=== PATIENT | male | born 1955 | race Caucasian/White ===

== ENCOUNTER → 2024-03-27 | Outpatient (CLI) | payer MEDICARE, BC, SELFPAY ==
[2024-03-27 17:44] LABS: Basophils % (Auto) 1 % (0-2.5); Eosinophils # (Auto) 0.3 Thou/mm3 (0.0-0.5); Eosinophils % (Auto) 6 % (0-10); Hematocrit 38.9 % (41.0-53.0); Hemoglobin 13.7 g/dL (13.5-16.0); Immature Granulocytes % (Auto) 0 % (0-0); Immature Granulocytes Auto 0.01 Thou/mm3 (0.00-0.00); Lymphocytes # (Auto) 1.6 Thou/mm3 (1.0-4.8); Lymphocytes % (Auto) 32 % (10-50); Mean Corpuscular HGB Conc 35.2 g/dl (31.0-37.0); Mean Corpuscular Hemoglobin 31.4 pg (25.0-35.0); Mean Corpuscular Volume 89 fL (80-100); Monocytes # (Auto) 0.5 Thou/mm3 (0.0-0.8); Monocytes % (Auto) 10 % (0-12); Neutrophils # (Auto) 2.6 Thou/mm3 (1.8-7.7); Neutrophils % (Auto) 52 % (37-80); Nucleated Red Blood Cell % 0 /100 WBC (0); Platelet Count 172 Thou/mm3 (140-440); RDW Standard Deviation 39.4 fL (35.1-43.9); Red Blood Count 4.37 Miln/mm3 (4.50-5.90); White Blood Count 5.1 Thou/mm3 (3.8-10.6)
[2024-03-27 17:53] LABS: B-Type Natriuretic Peptide 134 pg/mL (0-100)
[2024-03-27 17:59] LABS: D-Dimer 275 ng/mL (<600)
[2024-03-27 18:12] LABS: Anion Gap 8 (7-16); BUN/Creatinine Ratio 22 Ratio (12-20); Blood Urea Nitrogen 22 mg/dL (9-23); Calcium 9.4 mg/dL (8.3-10.6); Calcium (Corrected) 9.4 mg/dL (8.5-10.1); Carbon Dioxide 28.3 mMol/L (20.0-31.0); Chloride 106 mMol/L (98-107); Glucose 80 mg/dL (74-106); Osmolality,Calculated 285 (275-295); Phosphorous 3.8 mg/dL (2.4-5.1); Potassium 4.2 mMol/L (3.4-5.1); Sodium 142 mMol/L (136-145); Thyroid Stimulating Hormone 1.76 uIU/mL (0.55-4.78); Troponin I < 0.020 ng/mL (0.0-0.045); eGFR > 60 See Note
== END | disposition home or self-care (01) ==
LOC: COPL 16:58
PROVIDERS: PCP Specialist; Referring Provider Specialist; Visit Provider Specialist
DX: I42.9 Cardiomyopathy, unspecified (principal)
CPT/HCPCS: 36415; 80069; 83880; 84443; 84484; 85025; 85379

== ENCOUNTER → 2024-07-04 | Outpatient (CLI) | payer MEDICARE, BC, SELFPAY ==
[2024-07-04 11:16] LABS: INR 2.5 (0.9-1.3); Prothrombin Time 25.8 Seconds (9.0-12.2)
== END | disposition home or self-care (01) ==
PROVIDERS: PCP Specialist; Referring Provider Specialist; Visit Provider Specialist
DX: I35.0 Nonrheumatic aortic (valve) stenosis (principal); Z79.01 Long term (current) use of anticoagulants
CPT/HCPCS: 36415; 85610

== ENCOUNTER → 2024-07-11 | Outpatient (CLI) | payer MEDICARE, BC, SELFPAY ==
[2024-07-11 16:36] LABS: Basophils # (Auto) 0.1 Thou/mm3 (0.0-0.2); Basophils % (Auto) 1 % (0-2.5); Eosinophils # (Auto) 0.4 Thou/mm3 (0.0-0.5); Eosinophils % (Auto) 7 % (0-10); Hematocrit 40.1 % (41.0-53.0); Hemoglobin 14.1 g/dL (13.5-16.0); Immature Granulocytes % (Auto) 0 % (0-0); Immature Granulocytes Auto 0.01 Thou/mm3 (0.00-0.00); Lymphocytes # (Auto) 1.6 Thou/mm3 (1.0-4.8); Lymphocytes % (Auto) 31 % (10-50); Mean Corpuscular HGB Conc 35.2 g/dl (31.0-37.0); Mean Corpuscular Hemoglobin 31.5 pg (25.0-35.0); Mean Corpuscular Volume 90 fL (80-100); Monocytes # (Auto) 0.7 Thou/mm3 (0.0-0.8); Monocytes % (Auto) 13 % (0-12); Neutrophils # (Auto) 2.5 Thou/mm3 (1.8-7.7); Neutrophils % (Auto) 48 % (37-80); Nucleated Red Blood Cell % 0 /100 WBC (0); Platelet Count 194 Thou/mm3 (140-440); RDW Standard Deviation 39.8 fL (35.1-43.9); Red Blood Count 4.48 Miln/mm3 (4.50-5.90); White Blood Count 5.2 Thou/mm3 (3.8-10.6)
[2024-07-11 16:49] LABS: INR 2.3 (0.9-1.3); Partial Thromboplastin Time 39.4 Seconds (22.0-36.0); Prothrombin Time 23.6 Seconds (9.0-12.2)
[2024-07-11 16:54] LABS: Alanine Aminotransferase 17 U/L (10-49); Albumin, Serum 3.9 gm/dL (3.4-4.8); Albumin/Globulin Ratio 1.6 (1.2-2.2); Alkaline Phosphatase 111 U/L (46-116); Anion Gap 11 (7-16); Aspartate Amino Transferase 22 U/L (0-34); BUN/Creatinine Ratio 15 Ratio (12-20); Bilirubin,Total 1.1 mg/dL (0.3-1.2); Blood Urea Nitrogen 21 mg/dL (9-23); Calcium 9.2 mg/dL (8.3-10.6); Calcium (Corrected) 9.3 mg/dL (8.5-10.1); Carbon Dioxide 28.1 mMol/L (20.0-31.0); Cardiac Risk Estimate 4.1 RATIO (4.0-6.7); Chloride 107 mMol/L (98-107); Cholesterol 120 mg/dL (132-200); Creatinine (Component) 1.4 mg/dL (0.6-1.3); Globulin 2.4 gm/dL (2.3-3.5); Glucose 76 mg/dL (74-106); HDL Cholesterol 29 mg/dL (40-60); LDL Cholesterol,Calculated 41 mg/dL (0-130); Osmolality,Calculated 292 (275-295); Potassium 4.2 mMol/L (3.4-5.1); Sodium 146 mMol/L (136-145); Total Protein 6.3 gm/dL (5.7-8.2); Triglycerides 252 mg/dL (30-150); eGFR 55 See Note
[2024-07-11 16:55] LABS: B-Type Natriuretic Peptide 48 pg/mL (0-100)
== END | disposition home or self-care (01) ==
LOC: COPL 14:24
PROVIDERS: PCP Specialist; Referring Provider Specialist; Visit Provider Specialist
DX: G45.9 Transient cerebral ischemic attack, unspecified (principal); I50.9 Heart failure, unspecified; E78.2 Mixed hyperlipidemia; D64.9 Anemia, unspecified; I35.0 Nonrheumatic aortic (valve) stenosis; Z79.01 Long term (current) use of anticoagulants
CPT/HCPCS: 36415; 80053; 80061; 83880; 85025; 85610; 85730

== ENCOUNTER → 2024-07-12 | Outpatient (CLI) | payer MEDICARE, BC, SELFPAY ==
--- NOTE | 2024-07-12 14:55 | XR_ITS ---
Examination: Sinus series 4 views TECHNIQUE: Marcela Emerson lateral submentovertex sinus series 4 views Exam date and time: July 12, 2024 1641 hours INDICATIONS: Sudden loss of hearing right side last week FINDINGS: Opacity in the frontal ethmoid air cells Mucosal thickening up to 10 mm in the maxillary antra Moderate chronic mastoiditis IMPRESSION: Chronic sinusitis as above No fluid levels No retention cysts Moderate chronic mastoiditis, if the patient has hearing loss, consider CT scan middle inner ear without contrast follow-up
== END | disposition home or self-care (01) ==
LOC: SDIM 14:46
PROVIDERS: PCP Specialist; Referring Provider Specialist; Visit Provider Specialist
DX: J32.9 Chronic sinusitis, unspecified (principal); H70.11 Chronic mastoiditis, right ear
CPT/HCPCS: 70220

== ENCOUNTER → 2025-02-03 | Outpatient (CLI) | payer MEDICARE, BC, SELFPAY ==
--- NOTE | 2025-02-03 16:20 | XR_ITS ---
EXAMINATION: Cervical spine, 5 views Technique: Cervical spine AP, AP odontoid, lateral, bilateral obliques, 5 views Exam date and time: February 03, 2025, 1625 hours INDICATIONS: Neck pain beginning 3 weeks ago FINDINGS: Adequate alignment cervical vertebral bodies. No cervical fracture. Intact odontoid. Moderate degenerative disc disease C2-C3, C3-C4 Advanced degenerative disc disease C5-C6, C6-C7 with significant bilateral neuroforaminal stenosis Intact odontoid IMPRESSION: Advanced degenerative disc disease C5-C6, C6-C7 with significant bilateral neuroforaminal stenosis
--- NOTE | 2025-02-03 16:20 | XR_ITS ---
EXAMINATION: Thoracic spine 2 views TECHNIQUE: AP lateral thoracic spine 2 views Date and time: February 03, 2025, 1641 hours INDICATIONS: Upper back pain beginning 3 weeks ago. FINDINGS: Significant osteopenia No acute cervical fracture Limited study with no coned view of the upper dorsal spine Moderate diffuse thoracic disc narrowing IMPRESSION: Limited study Moderate diffuse thoracic degenerative disc disease
== END | disposition home or self-care (01) ==
PROVIDERS: PCP Specialist; Referring Provider Specialist; Visit Provider Specialist
DX: M50.322 Other cervical disc degeneration at C5-C6 level (principal); M48.02 Spinal stenosis, cervical region; M51.34 Other intervertebral disc degeneration, thoracic region
CPT/HCPCS: 72050; 72072